=== PATIENT | male | born 1985 | race Caucasian/White ===

== ENCOUNTER 2017-12-28 21:19 | Emergency (ER) | payer OTHER ==
[~2017-12-28] VITALS: Ht 182.8 cm; Wt 118.4 kg
[2017-12-28 22:04] LABS: BASO # 0.1 10*3/uL (0.0-0.1); BASO % 0.8 % (0.0-1.0); EOS # 0.3 10*3/uL (0.0-0.4); EOS % 3.4 % (1.0-4.0); HEMATOCRIT 45.8 % (42.0-52.0); HEMOGLOBIN 15.9 g/dl (14.0-18.0); LYMPH # 3.1 10*3/uL (1.3-4.4); MEAN CELL VOLUME 88.6 fl (80.0-94.0); MEAN CORPUSCULAR HGB 30.8 pg (27.0-31.0); MEAN CORPUSCULAR HGB CONC 34.7 g/dl (33.0-37.0); MEAN PLATELET VOLUME 10.1 fl (9.6-12.3); MONO # 0.6 10*3/uL (0.1-1.0); MONO % 8.4 % (3.0-9.0); NEUT # 3.3 10*3/uL (2.3-7.9); NEUT % 45.1 % (47.0-73.0); PLATELET COUNT AUTOMATED 192 10*3/uL (130-400); RED BLOOD COUNT 5.17 10*6/uL (4.50-5.90); RED CELL DISTRI WIDTH 12.4 % (0-14.5); WHITE BLOOD COUNT 7.3 10*3/uL (4.8-10.8)
[2017-12-28 22:19] LABS: ALBUMIN 3.9 gm/dl (3.1-4.5); ALKALINE PHOSPHATASE 52 U/L (45-117); BUN 15 mg/dl (7-24); CHLORIDE 106 mmol/L (98-107); CREATININE 0.74 mg/dL (0.70-1.30); LIPASE 104 U/L (73-393); POTASSIUM 3.6 mmol/L (3.5-5.1); SGOT/AST 16 IU/L (3-35); SGPT/ALT 25 U/L (12-78); SODIUM 142 mmol/L (136-145)
[2017-12-28] MEDS ORDERED: ZOFRAN ODT4 MG SL (22:33)
[2017-12-28] MEDS ORDERED: PEPCID40 MG PO (22:33)
[2017-12-28 22:34] LABS: BILIRUBIN NEGATIVE (NEGATIVE); BLOOD NEGATIVE (NEGATIVE); CLARITY SL CLOUDY (CLEAR); COLOR YELLOW (YELLOW); GLUCOSE NEGATIVE (NEGATIVE); KETONE TRACE (NEGATIVE); LEUKO ESTERASE NEGATIVE (NEGATIVE); NITRITE NEGATIVE (NEGATIVE); SPECIFIC GRAVITY >= 1.030 (1.005-1.030)
[2017-12-28] MEDS ORDERED: LOMOTIL 2.5-0.1 EACH PO (22:35)
[2017-12-28 22:47] LABS: BACTERIA TRACE; EPITHELIAL CELLS 0-2; MUCOUS 1+
== END 2017-12-29 00:10 | disposition home or self-care (01) ==
LOC: ED 21:19
PROVIDERS: Emergency Medicine
DX: K52.9 Noninfective gastroenteritis and colitis, unspecified (principal)

== ENCOUNTER 2023-05-20 16:54 | Emergency (ER) | payer OTHER ==
[~2023-05-20] VITALS: Ht 193 cm; Wt 113.4 kg
[~2023-05-20 16:54] MED LIST: LOMOTIL 2.5-0.1 EACH PO; PEPCID40 MG PO; ZOFRAN ODT4 MG SL
[2023-05-20] MEDS ORDERED: PENICILLIN VK500 MG PO (17:34)
== END 2023-05-20 17:59 | disposition home or self-care (01) ==
LOC: ED 16:54
DX: K04.7 Periapical abscess without sinus (principal)

== ENCOUNTER 2024-02-23 13:48 | Emergency (ER) | payer OTHER ==
[~2024-02-23] VITALS: Ht 182.8 cm; Wt 104.3 kg
[~2024-02-23 13:48] MED LIST changes: +PENICILLIN VK500 MG PO
[2024-02-23] MEDS ORDERED: Ketorolac Tromethamine 30 MG/ML VIAL IV ONE (14:30)
[2024-02-23] MEDS ORDERED: SODIUM CHLORIDE 0.9% 1,000 ML IV ONE (14:30)
[2024-02-23 14:57] LABS: BASO # 0.1 10*3/uL (0.0-0.1); BASO % 0.6 % (0.0-1.0); EOS % 0.4 % (1.0-4.0); HEMATOCRIT 50.8 % (42.0-52.0); LYMPH # 1.8 10*3/uL (1.3-4.4); LYMPH % 18.4 % (27.0-41.0); MEAN CELL VOLUME 90.6 fl (80.0-94.0); MEAN CORPUSCULAR HGB 31.7 pg (27.0-31.0); MEAN PLATELET VOLUME 9.9 fl (9.6-12.3); MONO # 0.8 10*3/uL (0.1-1.0); MONO % 7.9 % (3.0-9.0); NEUT # 6.8 10*3/uL (2.3-7.9); NEUT % 72.2 % (47.0-73.0); PLATELET COUNT AUTOMATED 236 10*3/uL (130-400); RED BLOOD COUNT 5.61 10*6/uL (4.50-5.90); RED CELL DISTRI WIDTH 12.3 % (0-14.5); WHITE BLOOD COUNT 9.5 10*3/uL (4.8-10.8)
[2024-02-23 15:23] LABS: ALKALINE PHOSPHATASE 70 U/L (46-116); BUN 10 mg/dl (9-23); CHLORIDE 107 mmol/L (98-107); LIPASE 77 U/L (12-53); POTASSIUM 3.3 mmol/L (3.4-5.1); SGPT/ALT 15 U/L (5-49); TOTAL PROTEIN 7.7 gm/dL (6.0-8.0)
[2024-02-23] MEDS ORDERED: MELOXICAM15 MG PO (15:55)
[2024-02-23] MEDS ORDERED: MORPHINE Sulfate 2 MG/ML SYR IV ONE (15:55)
[2024-02-23] MEDS ORDERED: Ondansetron4 MG PO (15:55)
[2024-02-23] MEDS ORDERED: Ondansetron Hydrochloride 4 MG/2 ML VIAL IV ONE (15:55)
[2024-02-23] MEDS ORDERED: FLOMAX0.4 MG PO (15:55)
== END 2024-02-23 16:58 | disposition home or self-care (01) ==
LOC: ED 13:48
PROVIDERS: Internal Medicine
DX: N20.0 Calculus of kidney (principal); R11.2 Nausea with vomiting, unspecified